=== PATIENT | female | born 1965 | race Caucasian/White ===

== ENCOUNTER 2024-03-14 10:51 | Outpatient (CLI) | payer OTHER ==
[~2024-03-14 10:51] MED LIST: ALBUTEROL17 GM IH; Asa-EC 81MG TAB PO; Atrovent 0.02% (0.5 MG/2.5 ML AMPUL) IH; Cozaar PO; FLOVENT13 G2 IH; HumaLOG 100 UNIT/1 ML (3ML) SUBCUTANEO; Lantus 1000 U/10 ML SUBCUTANEO; Lipitor 20MG PO; Lyrica PO; POLY119PG PO; SINGULAIR5 MG PO; Singulair 10MG PO; THEO-DUR PO; Xopenex 1.25 MG/3 ML SOLUTION IH
== END 2024-03-14 10:57 | disposition home or self-care (01) ==
LOC: RAD 10:51
PROVIDERS: ATTEND Obstetrics & Gynecology Gynecologic Oncology
DX: D64.9 Anemia, unspecified (principal); Z01.818 Encounter for other preprocedural examination; Z20.822 Contact with and (suspected) exposure to COVID-19; N83.292 Other ovarian cyst, left side; N39.0 Urinary tract infection, site not specified; R79.1 Abnormal coagulation profile

== ENCOUNTER 2024-03-21 07:15 | Inpatient (IN) | payer OTHER ==
[~2024-03-21] VITALS: Ht 132.1 cm; Wt 77.1 kg
[2024-03-21] MEDS ORDERED: CEFOXITIN SODIUM 2,000 MG VIAL IV ONE ×2 (12:24→15:30)
[2024-03-21] MEDS ORDERED: THROMBIN,HU/FIBRINOGEN/CALCIUM 10 ML SYRINGE TOP ONE ×2 (15:45→16:00)
[2024-03-21] MEDS ORDERED: VISTASEAL DUAL APPICATOR 1 EACH APPL TOP ONE ×2 (15:45→16:00)
[2024-03-21] MEDS ORDERED: RINGERS SOLUTION,LACTATED 1,000 ML IV SCH (19:30)
[2024-03-21] MEDS ORDERED: OxyCODONE HCL/APAP UD (PERCOCET) PO PRN (19:30)
[2024-03-21] MEDS ORDERED: ONDANSETRON HCL 2 MG/ML VIAL IV PRN (19:30)
[2024-03-21] MEDS ORDERED: MORPHINE SULFATE 4 MG/ML VIAL IV PRN (19:30)
[2024-03-21] MEDS ORDERED: FAMOTIDINE/PF 20 MG/2 ML VIAL ONE (20:03)
[2024-03-21] MEDS ORDERED: CEFAZOLIN SODIUM 1,000 MG VIAL ONE (20:03)
[2024-03-21] MEDS ORDERED: CEFAZOLIN SODIUM 1,000 MG VIAL IV SCH (21:00)
[2024-03-21] MEDS ORDERED: FAMOTIDINE/PF 20 MG/10 ML SYRINGE IV PUSH SCH (21:00)
[2024-03-21 21:37] LABS: HEMATOCRIT 35.5 % (36.0-45.00); HEMOGLOBIN 11.7 g/dL (12.0-15.00); MEAN CELL VOLUME 76.1 fL (80.00-100.00); MEAN CORPUSCULAR HEMOGLOBIN 25.1 pg (27.00-32.0); PLATELET COUNT 214 K/uL (150-450); RED BLOOD COUNT 4.66 M/uL (4.00-6.00); RED CELL DISTRIBUTION WIDTH 15.2 % (11.5-14.5)
[2024-03-21 21:56] LABS: ALBUMIN 3.7 gm/dL (3.4-5.0); CALCIUM 9.3 mg/dL (8.5-10.1); CREATININE SERUM 0.89 mg/dL (0.55-1.02); GFR 65.61; MAGNESIUM 2.1 mg/dL (1.8-2.4); PHOSPHOROUS 4.2 mg/dL (2.5-4.9); POTASSIUM 5.18 mEq/L (3.5-5.1)
[2024-03-22 06:55] LABS: HEMOGLOBIN 10.3 g/dL (12.0-15.00); MEAN CELL VOLUME 76.5 fL (80.00-100.00); MEAN CORPUSCULAR HEMOGLOBIN 25.5 pg (27.00-32.0); MEAN CORPUSCULAR HGB CONC 33.4 g/dl (32.0-36.0); PLATELET COUNT 206 K/uL (150-450); RED BLOOD COUNT 4.05 M/uL (4.00-6.00); RED CELL DISTRIBUTION WIDTH 15.1 % (11.5-14.5)
[2024-03-22] MEDS ORDERED: IPRATROPIUM/ALBUTEROL SULFATE 3 ML AMPUL.NEB IH SCH (07:04)
[2024-03-22 07:16] LABS: CALCIUM 8.9 mg/dL (8.5-10.1); CREATININE SERUM 0.97 mg/dL (0.55-1.02); GFR 59.4; MAGNESIUM 2.1 mg/dL (1.8-2.4); PHOSPHOROUS 4.1 mg/dL (2.5-4.9); POTASSIUM 4.48 mEq/L (3.5-5.1)
[2024-03-22] MEDS ORDERED: FUROsemide 20 MG/2 ML VIAL IV ONE (08:00)
[2024-03-22] MEDS ORDERED: INSULIN LISPRO 1,000 UNIT/10 ML UNITS SUBCUTANEO PRN (08:00)
[2024-03-22] MEDS ORDERED: DEXTROSE 50 % IN WATER 0.5 G/ML DISP.SYRIN IV PRN (08:00)
[2024-03-22] MEDS ORDERED: HYOSCYAMINE SULFATE 0.125 MG TAB.SUBL SL SCH (09:00)
[2024-03-22] MEDS ORDERED: FAMOTIDINE/PF 20 MG/2 ML VIAL IV PUSH SCH (09:00)
[2024-03-22] MEDS ORDERED: ENOXAPARIN SODIUM 40 MG/0.4 ML SYRINGE SUBCUTANEO SCH (09:00)
[2024-03-22] MEDS ORDERED: METHYLPREDNISOLONE SOD SUCC 40 MG VIAL IV NR (19:15)
[2024-03-22] MEDS ORDERED: LEVALBUTEROL HCL 0.63 MG/3 ML SOLUTION IH SCH (19:57)
[2024-03-22] MEDS ORDERED: MONTELUKAST SODIUM 10 MG TABLET PO SCH (19:58)
[2024-03-22] MEDS ORDERED: BENZONATATE 100 MG CAPSULE PO SCH (19:58)
[2024-03-22] MEDS ORDERED: BENZONATATE 100 MG CAPSULE PO ONE (21:36)
[2024-03-22] MEDS ORDERED: MONTELUKAST SODIUM 10 MG TABLET PO ONE (21:36)
[2024-03-23] MEDS ORDERED: THEO-DUR 200 MG PO SCH (09:00)
[2024-03-23 11:28] LABS: HEMATOCRIT 31.8 % (36.0-45.00); HEMOGLOBIN 10.3 g/dL (12.0-15.00); MEAN CELL VOLUME 76.1 fL (80.00-100.00); MEAN CORPUSCULAR HEMOGLOBIN 24.7 pg (27.00-32.0); MEAN CORPUSCULAR HGB CONC 32.5 g/dl (32.0-36.0); PLATELET COUNT 171 K/uL (150-450); RED BLOOD COUNT 4.17 M/uL (4.00-6.00); RED CELL DISTRIBUTION WIDTH 15.2 % (11.5-14.5)
[2024-03-23 12:13] LABS: ALBUMIN 3.4 gm/dL (3.4-5.0); BILIRUBIN TOTAL 0.57 mg/dL (0.3-1.2); CALCIUM 9.2 mg/dL (8.5-10.1); CREATININE SERUM 0.96 mg/dL (0.55-1.02); GFR 60.12; GLOBULINA 3.1 G/DL (2.4-3.5); TOTAL PROTEIN 6.5 gm/dL (6.4-8.2)
[2024-03-23] MEDS ORDERED: IPRATROPIUM BROMIDE 0.5 MG/2.5 ML AMPUL.NEB IH SCH (17:00)
[2024-03-23] MEDS ORDERED: IBUprofen 800 MG TABLET PO SCH (17:00)
[2024-03-23] MEDS ORDERED: SIMETHICONE 125 MG CAPSULE PO SCH (17:00)
[2024-03-23] MEDS ORDERED: METOCLOPRAMIDE HCL 10 MG TABLET PO SCH (18:00)
[2024-03-23] MEDS ORDERED: ACETAMINOPHEN 500 MG GEL..CAP PO SCH (19:48)
[2024-03-23] MEDS ORDERED: DOCUSATE SODIUM 100MG CAP PO SCH (21:00)
== END 2024-03-24 13:48 | disposition home or self-care (01) | DRG 743 ==
LOC: CIR.AMB 07:15 → SURG 19:41
PROVIDERS: Internal Medicine; ADMIT Obstetrics & Gynecology Gynecologic Oncology; ATTEND Obstetrics & Gynecology Gynecologic Oncology
PROC: 0UT14ZZ Resection of Left Ovary, Percutaneous Endoscopic Approach (ICD-10-PCS; principal; 2024-03-22)
PROC: 0UT64ZZ Resection of Left Fallopian Tube, Percutaneous Endoscopic Approach (ICD-10-PCS; 2024-03-22)
PROC: 07BC4ZZ Excision of Pelvis Lymphatic, Percutaneous Endoscopic Approach (ICD-10-PCS; 2024-03-22)
PROC: 0DNW4ZZ Release Peritoneum, Percutaneous Endoscopic Approach (ICD-10-PCS; 2024-03-22)
PROC: 0DNM4ZZ Release Descending Colon, Percutaneous Endoscopic Approach (ICD-10-PCS; 2024-03-22)
PROC: 0TN74ZZ Release Left Ureter, Percutaneous Endoscopic Approach (ICD-10-PCS; 2024-03-22)
PROC: 0TN64ZZ Release Right Ureter, Percutaneous Endoscopic Approach (ICD-10-PCS; 2024-03-22)
PROC: 3E0F7GC Introduction of Other Therapeutic Substance into Respiratory Tract, Via Natural or Artificial Opening (ICD-10-PCS; 2024-03-22)
DX: D27.1 Benign neoplasm of left ovary (principal); D36.0 Benign neoplasm of lymph nodes; Z20.822 Contact with and (suspected) exposure to COVID-19; J98.01 Acute bronchospasm

== ENCOUNTER 2025-04-22 12:29 | Outpatient (CLI) | payer OTHER | END 2025-04-22 12:45 | disposition home or self-care (01) | LOC: SONOGRAMA 12:29 | PROVIDERS: ATTEND Surgery | DX: D49.2 Neoplasm of unspecified behavior of bone, soft tissue, and skin (principal) ==